=== PATIENT | male | born 1995 | race African-American/Black ===

== ENCOUNTER 2024-01-25 12:28 | Emergency (ER) | payer OTHER, SELFPAY ==
[2024-01-25] MEDS ORDERED: Ketorolac Tromethamine 30 MG (1 mL) VIAL ONE (14:09)
== END 2024-01-25 14:32 | disposition home or self-care (01) ==
LOC: ERS 12:28
DX: S67.192A Crushing injury of right middle finger, initial encounter (principal); S60.131A Contusion of right middle finger with damage to nail, initial encounter; F17.210 Nicotine dependence, cigarettes, uncomplicated; W23.1XXA Caught, crushed, jammed, or pinched between stationary objects, initial encounter; Z55.6 Problems related to health literacy
CPT/HCPCS: 96372; J1885